=== PATIENT | female | born 1935 | race Caucasian/White ===

== ENCOUNTER 2018-02-02 10:49 | Observation (INO) | payer MEDICARE ==
[2018-02-02 11:25] LABS: BASO % 0.6 % (0.0-1.0); EOS # 0.2 10^3/uL (0.0-0.50); EOS % 3.7 % (0.0-3.0); HEMOGLOBIN 12.6 g/dl (12.0-15.5); IMMATURE GRANULOCYTE % 0.4 % (0-3.0); LYMPH # 1.1 10^3/uL (1.5-4.5); MEAN CORPUSCULAR HEMOGLOBIN 30.9 pg (27.0-33.0); MEAN CORPUSCULAR HGB CONC 32.3 g/dl (32.0-36.5); MEAN CORPUSCULAR VOLUME 95.6 fl (80.0-96.0); MONO # 0.6 10^3/uL (0.0-0.8); MONO % 11.8 % (0.0-5.0); NEUTROPHILS # 3.1 10^3/uL (1.8-7.7); NEUTROPHILS % 61.5 % (36.0-66.0); PLATELET COUNT, AUTOMATED 262 10^3/uL (150-450); RED BLOOD COUNT 4.08 10^6/uL (4.00-5.40); RED CELL DISTRIBUTION WIDTH 13.2 % (11.5-14.5); WHITE BLOOD COUNT 5.1 10^3/uL (4.0-10.0)
[2018-02-02 12:19] LABS: ALKALINE PHOSPHATASE 67 U/L (45-117); ALT/SGPT 26 U/L (12-78); ANION GAP 8 MEQ/L (8-16); AST/SGOT 19 U/L (7-37); BILIRUBIN,TOTAL 0.4 MG/DL (0.2-1.0); BLOOD UREA NITROGEN 26 MG/DL (7-18); CALCIUM LEVEL 9.2 MG/DL (8.8-10.2); CARBON DIOXIDE LEVEL 24 MEQ/L (21-32); CHLORIDE LEVEL 106 MEQ/L (98-107); CPK CREATINE PHOSPHOKINASE 78 U/L (26-192); CREATININE FOR GFR 1.43 MG/DL (0.55-1.30); GLOMERULAR FILTRATION RATE 37.6 (>32); GLUCOSE, FASTING 110 MG/DL (70-100); MB/CK RELATIVE INDEX 1.92 (< OR =4); SODIUM LEVEL 138 MEQ/L (136-145); TROPONIN I 0.04 NG/ML (< 0.10)
[2018-02-02 12:20] LABS: ALBUMIN 3.9 GM/DL (3.2-5.2); ALBUMIN/GLOBULIN RATIO 1.18 (1.00-1.93); BILIRUBIN,DIRECT < 0.1 MG/DL (0.0-0.2); LIPASE 245 U/L (73-393); TOTAL PROTEIN 7.2 GM/DL (6.4-8.2)
[2018-02-02 18:19] LABS: CPK CREATINE PHOSPHOKINASE 74 U/L (26-192); MB/CK RELATIVE INDEX 2.03 (< OR =4); TROPONIN I 0.08 NG/ML (< 0.10)
[2018-02-02] MEDS ORDERED: BISACODYL 5 MG TAB PO ×2 (20:15)
[2018-02-02] MEDS ORDERED: ONDANSETRON 4MG/2ML VIAL (J2405) IV ×2 (20:15)
[2018-02-02] MEDS: ACETAMINOPHEN TAB 650MG DOSE (2X325MG) PO ×2 (21:30)
[2018-02-02 23:33] LABS: CPK CREATINE PHOSPHOKINASE 63 U/L (26-192); MB/CK RELATIVE INDEX 1.75 (< OR =4); TROPONIN I 0.08 NG/ML (< 0.10)
[2018-02-03] MEDS: ACETAMINOPHEN TAB 650MG DOSE (2X325MG) PO ×2 (01:39)
[2018-02-03] MEDS: PANTOPRAZOLE 40MG INJ (PROTONIX) (C9113) IV ×2 (06:03)
[2018-02-03] MEDS: HEPARIN SOD (PORCINE) 5000 UNITS/ML VIAL SC ×4 (06:03→14:00)
[2018-02-03] MEDS: LEVOTHYROXINE 75MCG TABLET (0.075MG) PO ×2 (06:03)
[2018-02-03 07:50] LABS: HEMATOCRIT 35.4 % (36.0-47.0); HEMOGLOBIN 11.5 g/dl (12.0-15.5); MEAN CORPUSCULAR HEMOGLOBIN 30.2 pg (27.0-33.0); MEAN CORPUSCULAR HGB CONC 32.5 g/dl (32.0-36.5); MEAN CORPUSCULAR VOLUME 92.9 fl (80.0-96.0); PLATELET COUNT, AUTOMATED 244 10^3/uL (150-450); RED BLOOD COUNT 3.81 10^6/uL (4.00-5.40); RED CELL DISTRIBUTION WIDTH 13.2 % (11.5-14.5); WHITE BLOOD COUNT 5.5 10^3/uL (4.0-10.0)
[2018-02-03 08:02] LABS: ANION GAP 7 MEQ/L (8-16); BLOOD UREA NITROGEN 25 MG/DL (7-18); CALCIUM LEVEL 8.8 MG/DL (8.8-10.2); CARBON DIOXIDE LEVEL 26 MEQ/L (21-32); CHLORIDE LEVEL 107 MEQ/L (98-107); CPK CREATINE PHOSPHOKINASE 67 U/L (26-192); GLOMERULAR FILTRATION RATE 38.5 (>32); GLUCOSE, FASTING 92 MG/DL (70-100); MB/CK RELATIVE INDEX 1.79 (< OR =4); POTASSIUM SERUM 4.1 MEQ/L (3.5-5.1); SODIUM LEVEL 140 MEQ/L (136-145); TROPONIN I 0.08 NG/ML (< 0.10)
[2018-02-03] MEDS ORDERED: OLMESARTAN MEDOXOMIL 20 MG TAB (BENICAR) PO ×2 (09:00)
[2018-02-03] MEDS: **hydrALAZINE** 10 MG TAB PO ×2 (10:00)
[2018-02-03] MEDS: ASPIRIN 81 MG ENTERIC TAB PO ×2 (10:00)
[2018-02-03] MEDS: MULTIVITAMINS/MINERALS THERAP 1 TAB PO ×2 (10:00)
[2018-02-03] MEDS ORDERED: E-Z-GAS II EFFERVESCENT PACKET (SODIUM BICARB./CITRIC ACID/SIMETHICONE) As Ordered ×2 (11:42)
[2018-02-03] MEDS ORDERED: E-Z-HD 98% w/w 340GM SUSP BTL As Ordered ×2 (11:42)
[2018-02-03] MEDS ORDERED: E-Z-PAQUE 96% w/w SUSP 176GM BTL As Ordered ×2 (11:42)
== END 2018-02-03 07:16 | disposition home or self-care (01) ==
LOC: M ED 10:49 → M ED INP 20:09
DX: R07.89 Other chest pain (principal); I10 Essential (primary) hypertension; E05.90 Thyrotoxicosis, unspecified without thyrotoxic crisis or storm; K21.9 Gastro-esophageal reflux disease without esophagitis; Z79.899 Other long term (current) drug therapy; Z79.82 Long term (current) use of aspirin; N18.9 Chronic kidney disease, unspecified
CPT/HCPCS: C9113

== ENCOUNTER 2018-02-12 06:40 | Emergency (ER) | payer MEDICARE ==
[2018-02-12 07:12] LABS: BASO % 0.5 % (0.0-1.0); EOS # 0.2 10^3/uL (0.0-0.50); EOS % 3.2 % (0.0-3.0); HEMATOCRIT 38.7 % (36.0-47.0); HEMOGLOBIN 12.5 g/dl (12.0-15.5); IMMATURE GRANULOCYTE % 0.2 % (0-3.0); LYMPH # 1.2 10^3/uL (1.5-4.5); LYMPH % 18.9 % (24.0-44.0); MEAN CORPUSCULAR HEMOGLOBIN 30.9 pg (27.0-33.0); MEAN CORPUSCULAR HGB CONC 32.3 g/dl (32.0-36.5); MEAN CORPUSCULAR VOLUME 95.6 fl (80.0-96.0); MONO # 0.6 10^3/uL (0.0-0.8); NEUTROPHILS # 4.3 10^3/uL (1.8-7.7); NEUTROPHILS % 68.2 % (36.0-66.0); PLATELET COUNT, AUTOMATED 259 10^3/uL (150-450); RED BLOOD COUNT 4.05 10^6/uL (4.00-5.40); RED CELL DISTRIBUTION WIDTH 13.2 % (11.5-14.5); WHITE BLOOD COUNT 6.3 10^3/uL (4.0-10.0)
[2018-02-12 07:41] LABS: ANION GAP 8 MEQ/L (8-16); BLOOD UREA NITROGEN 25 MG/DL (7-18); CALCIUM LEVEL 9.4 MG/DL (8.8-10.2); CARBON DIOXIDE LEVEL 26 MEQ/L (21-32); CHLORIDE LEVEL 105 MEQ/L (98-107); CPK CREATINE PHOSPHOKINASE 117 U/L (26-192); CREATININE FOR GFR 1.54 MG/DL (0.55-1.30); GLOMERULAR FILTRATION RATE 34.5 (>32); GLUCOSE, FASTING 102 MG/DL (70-100); MB/CK RELATIVE INDEX 3.93 (< OR =4); POTASSIUM SERUM 4.6 MEQ/L (3.5-5.1); SODIUM LEVEL 139 MEQ/L (136-145); TROPONIN I 2.53 NG/ML (< 0.10)
[2018-02-12] MEDS ORDERED: ASPIRIN 81 MG CHEW TABLET PO (07:45)
[2018-02-12] MEDS: NITROGLYCERIN 0.4 MG SUBL TABLET SL ×2 (08:03→08:10)
[2018-02-12 08:09] LABS: INR 0.96; PROTHROMBIN TIME 12.9 SECONDS (12.1-14.4)
[2018-02-12 08:10] LABS: PARTIAL THROMBOPLASTIN TIME 23.2 SECONDS (25.4-37.6)
[2018-02-12] MEDS: CLOPIDOGREL 300 MG TAB (PLAVIX) PO (08:15)
[2018-02-12] MEDS: HEPARIN DRIP 25,000 UNITS in APPROPRIATE DILUENT 1 EA IV (08:15)
[2018-02-12] MEDS: HEPARIN SOD (PORCINE) 5000 UNITS/ML VIAL IV (08:15)
== END 2018-02-12 09:13 | disposition short-term general hospital (02) ==
LOC: M ED 06:40
DX: I21.4 Non-ST elevation (NSTEMI) myocardial infarction (principal); I10 Essential (primary) hypertension; E78.5 Hyperlipidemia, unspecified; K21.9 Gastro-esophageal reflux disease without esophagitis; Z88.8 Allergy status to other drugs, medicaments and biological substances; Z79.899 Other long term (current) drug therapy; Z79.82 Long term (current) use of aspirin
CPT/HCPCS: 71045

== ENCOUNTER → 2018-06-09 | Outpatient (REF) | payer MEDICARE ==
[~2018-06-09] MED LIST: ASPI81TA85 PO; BACI1CAP PO; BENI40TA26 PO; ERYTOIN8 OP; LEVO75TA4 PO; PEPC1TAB5 PO; POLY2.5S OP; PRIL20TA2 PO; REFR0.5D8 OU; VITMTA PO
[2018-06-09 19:02] LABS: PERCENT SATURATION 22.8 % (13.2-45.0)
== END ==
LOC: M LAB REF 17:17
PROVIDERS: ATTEND Internal Medicine Nephrology
DX: N18.4 Chronic kidney disease, stage 4 (severe) (principal); D50.9 Iron deficiency anemia, unspecified

== ENCOUNTER 2018-06-12 15:11 | Emergency (ER) | payer MEDICARE ==
[~2018-06-12] VITALS: Ht 144.8 cm; Wt 61.4 kg
[~2018-06-12 15:11] MED LIST changes: -ERYTOIN8 OP; -POLY2.5S OP
[2018-06-12] MEDS ORDERED: POLY2.5S OP (15:18)
[2018-06-12] MEDS ORDERED: PROPARACAINE 0.5% OPHTH SOL 15ML OU ONE (16:00)
[2018-06-12] MEDS ORDERED: FLUORESCEIN OPHTH 1 MG STRIP OU ONE (16:00)
[2018-06-12] MEDS ORDERED: ERYTHROMYCIN OPHTH OINT OU ONE (16:30)
[2018-06-12] MEDS ORDERED: ERYTOIN8 OP (16:34)
[2018-06-12 16:45] VITALS: BP 150/90
== END 2018-06-12 16:53 | disposition home or self-care (01) ==
LOC: M ED 15:11
DX: H16.003 Unspecified corneal ulcer, bilateral (principal); I10 Essential (primary) hypertension; I25.2 Old myocardial infarction; E03.9 Hypothyroidism, unspecified; K21.9 Gastro-esophageal reflux disease without esophagitis; Z79.899 Other long term (current) drug therapy; Z79.890 Hormone replacement therapy; Z79.82 Long term (current) use of aspirin; Z79.01 Long term (current) use of anticoagulants; Z88.1 Allergy status to other antibiotic agents; Z88.2 Allergy status to sulfonamides

== ENCOUNTER → 2018-07-02 | Outpatient (REF) | payer MEDICARE ==
[~2018-07-02] MED LIST changes: +ERYTOIN8 OP; +POLY2.5S OP
== END ==
LOC: M SFHCLERA 10:21
PROVIDERS: ATTEND Physician Assistant
DX: N39.0 Urinary tract infection, site not specified (principal)

== ENCOUNTER 2018-08-05 20:50 | Observation (INO) | payer MEDICARE ==
[~2018-08-05] VITALS: Ht 142.2 cm; Wt 60.9 kg
[2018-08-05] MEDS ORDERED: METO1TAB87 PO (21:13)
[2018-08-05] MEDS ORDERED: CLOP75TA2 PO (21:13)
[2018-08-05] MEDS ORDERED: BENI40TA26 PO (21:15)
[2018-08-05] MEDS ORDERED: OYST1TAB PO (21:15)
[2018-08-05 22:15] LABS: ALBUMIN 3.8 GM/DL (3.2-5.2); ALT/SGPT 41 U/L (12-78); BILIRUBIN,DIRECT < 0.1 MG/DL (0.0-0.2); BILIRUBIN,TOTAL 0.3 MG/DL (0.2-1.0); BLOOD UREA NITROGEN 39 MG/DL (7-18); CALCIUM LEVEL 9.2 MG/DL (8.8-10.2); CARBON DIOXIDE LEVEL 28 MEQ/L (21-32); CHLORIDE LEVEL 106 MEQ/L (98-107); CPK CREATINE PHOSPHOKINASE 81 U/L (26-192); CREATININE FOR GFR 2.22 MG/DL (0.55-1.30); GLOMERULAR FILTRATION RATE 22.6 (>32); GLUCOSE, FASTING 106 MG/DL (70-100); MB/CK RELATIVE INDEX 1.73 (< OR =4); POTASSIUM SERUM 4.5 MEQ/L (3.5-5.1); SODIUM LEVEL 138 MEQ/L (136-145); TOTAL PROTEIN 7.5 GM/DL (6.4-8.2); TROPONIN I < 0.02 NG/ML (< 0.10)
[2018-08-05 22:45] LABS: HEMATOCRIT 35.3 % (36.0-47.0); HEMOGLOBIN 11.2 g/dl (12.0-15.5); MEAN CORPUSCULAR HEMOGLOBIN 30.5 pg (27.0-33.0); MEAN CORPUSCULAR HGB CONC 31.7 g/dl (32.0-36.5); MEAN CORPUSCULAR VOLUME 96.2 fl (80.0-96.0); PLATELET COUNT, AUTOMATED 246 10^3/uL (150-450); RED BLOOD COUNT 3.67 10^6/uL (4.00-5.40); WHITE BLOOD COUNT 6.4 10^3/uL (4.0-10.0)
[2018-08-05] MEDS ORDERED: HEAL1TAB PO (23:44)
[2018-08-05] MEDS ORDERED: TUMS500C PO (23:44)
[2018-08-05] MEDS ORDERED: PREP1CRE EXT (23:44)
[2018-08-05] MEDS ORDERED: FAMO1TAB25 PO (23:44)
[2018-08-05] MEDS ORDERED: CVS500CA5 PO (23:44)
[2018-08-05] MEDS ORDERED: VITA100T14 PO (23:44)
[2018-08-05] MEDS ORDERED: ASPI81TA26 PO (23:44)
[2018-08-05] MEDS ORDERED: CO Q200C10 PO (23:44)
[2018-08-05] MEDS ORDERED: OCUVTAB PO (23:44)
[2018-08-05] MEDS ORDERED: ARTI99.0 OU (23:44)
[2018-08-05] MEDS ORDERED: NITR4TASL SL (23:44)
[2018-08-05] MEDS ORDERED: CALC1TAB63 PO (23:44)
[2018-08-05] MEDS ORDERED: C 50TAB PO (23:44)
[2018-08-05] MEDS ORDERED: VITMTA PO (23:44)
[2018-08-05] MEDS ORDERED: FERG27TA PO (23:44)
[2018-08-05] MEDS ORDERED: VITS42.53 EXT (23:44)
[2018-08-05] MEDS ORDERED: ACET-897 PO (23:44)
[2018-08-05] MEDS ORDERED: LIVA1TAB PO (23:44)
[2018-08-06] MEDS ORDERED: MAALOX 30 ML SUSP *UDC PO PRN (00:15)
[2018-08-06] MEDS ORDERED: MOM 30ML SUSPENSION UDC PO PRN (00:15)
[2018-08-06] MEDS ORDERED: NITROGLYCERIN 0.4 MG SUBL TABLET SL PRN (00:15)
[2018-08-06] MEDS ORDERED: ACETAMINOPHEN TAB 650MG DOSE (2X325MG) PO PRN (00:15)
[2018-08-06] MEDS ORDERED: LR 1,000 ML IV SCH (00:15)
[2018-08-06] MEDS ORDERED: CALCIUM CARBONATE 500 MG CHEW U/D PO PRN (00:15)
--- NOTE | 2018-08-06 01:25 | HPEPDOC ---
General Date of Admission August 05, 2018 at 23:15 Chief Complaint The patient is a 82-year-old female admitted with a reason for visit of Renal In [facility]. Source: Patient History of Present Illness Ms Fofana is an 82 years old woman with hx/o HTN. She felt warm and flushed today at home and checked her BP which was very high. She then decided to come to ER. Pt could not tell me the home reading of BP. She took her evening dose of Lopressor before coming to ER. She reports being complaint with BP meds. She takes Benicar and Lopressor at home. On arrival to ER, pt's BP was only moderately elevated. Her symptoms resolved. Labs was significant for moderately elevated BUN (39) and Cr (2.2 vs 1.5), s lightly off from her baseline. Pt denies nausea, vomiting, diarrhea or urinary symptoms. She says she was recently treated for UTI with antibiotic. Home Medications Scheduled Ascorbic Acid (Vitamin C) 500 Mg Tablet, 500 MG PO QPM, (Reported) Aspirin (Aspirin EC) 81 Mg Tablet.dr, 81 MG PO DAILY, (Reported) B6/FA/B12/Co Q10/Herb No.225 (Healthy Heart Complex Tablet) 1 Each Tablet, 1 TAB PO DAILY, (Reported) Calcium Carbonate/Vitamin D3 (Calcium 600-Vit D3 400 Tablet) 1 Each Tablet, 1 TAB PO BID, (Reported) Clopidogrel Bisulfate (Clopidogrel) 75 Mg Tablet, 75 MG PO DAILY, (Reported) Cranberry Fruit Extract (Cranberry) 500 Mg Capsule, 500 MG PO DAILY, (Reported) Famotidine (Pepcid) 20 Mg Tab, 20 MG PO DAILY, (Reported) Ferrous Gluconate (Fergon) 270 Mg Tablet, 0.25 TAB PO BID, (Reported) Levothyroxine Sodium (Levothyroxine Sodium) 75 Mcg Tab, 75 MCG PO DAILY, (Reported) Metoprolol Tartrate (Metoprolol Tartrate) 25 Mg Tablet, 12.5 MG PO BID, (Repor matt) Multivitamins (Thera M Plus Tablet) 1 Each Tablet, 1 TAB PO DAILY, (Reported) Olmesartan Medoxomil (Benicar) 40 Mg Tablet, 40 MG PO DAILY, (Reported) Pitavastatin Calcium (Livalo) 1 Mg Tablet, 1 MG PO QHS, (Reported) Polyvinyl Alcohol (Artificial Tears) 15 Ml Drops, 1 DROP OU BID, (Reported) Pyridoxine HCl (Vitamin B6) (Vitamin B-6) 100 Mg Tablet, 100 MG PO DAILY, (Reported) Ubidecarenone (Co Q-10) 200 Mg Capsule, 200 MG PO DAILY, (Reported) Vits A,C,E/Lutein/Minerals (Ocuvite with Lutein Tablet) 1 Each Tablet, 1 TAB PO QPM, (Reported) Scheduled PRN Acetaminophen (Tylenol Extra Strength) 500 Mg Tablet, 1,000 MG PO Q6H PRN for PAIN, (Reported) Calcium Carbonate (Tums) 200 Mg Tab.chew, 500 MG PO Q4H PRN for HEARTBURN/INDIGESTION, (Reported) Famotidine (Famotidine) 10 Mg Tablet, 10 MG PO QPM PRN for HEARTBURN, (Reported) Hydrocortisone (Preparation H) 26 Gm Cream..g., 1 DOSE EXT QID PRN for HEMORRHOIDS, (Reported) Nitroglycerin (Nitrostat) 0.4 Mg Tab.subl, 0.4 MG SL NITRO PRN for CHEST PAIN, (Reported) Vits A and D/White Pet/Lanolin (A and D Ointment) 42.5 Gm Oint...g., 1 OIN EXT QID PRN for DRY SKIN, (Reported) USES ON PERINEUM Allergies Coded Allergies: Sulfa (Sulfonamide Antibiotics) (Verified Allergy, Intermediate, HIVES, 08/05/18) Past Medical History Medical History HTN, Hyperthyroidism, CKD III, GERD Surgical History History of appendicitis resulting intestinal surgical removal, colostomy, reversal of colostomy. Hysterectomy, hernia repair. Family History Significant Family History: No pertinent family hx Social History * Smoker: Denies Alcohol: Denies Drugs: denies A-FIB/CHADSVASC A-FIB History Current/History of A-Fib/PAF?: No Review of Systems Constitutional: Denies: Chills, Fever, Malaise, Weakness, Lethargy Eyes: Denies: Pain ENT: Denies: Head Aches Skin: Denies: Rash Pulmonary: Denies: Dyspnea, Pleuritic Chest Pain Cardiovascular: Denies: Chest Pain, Palpitations Gastrointestinal: Denies: Nausea, Vomiting, Abdominal Pain, Diarrhea, Constipation Genitourinary: Denies: Dysuria, Frequency, Incontinence Musculoskeletal: Denies: Muscle Pain Neurological: Denies: Weakness, Confusion Psych: Reports: Mood Normal Physical Examination General Exam: Positive: Alert, Cooperative, No Acute Distress ENT Exam: Positive: Atraumatic, Other ENT (dry tongue) Neck Exam: Positive: Supple; Negative: JVD Chest Exam: Positive: Clear to auscultation, Normal air movement Heart Exam: Positive: Rate Normal, Regular Rhythm Abdomen Exam: Positive: Normal bowel sounds, Soft; Negative: Tenderness Extremity Exam: Negative: Edema Skin Exam: Negative: Rash Neuro Exam: Positive: Normal Speech, Strength at 5/5 X4 ext Psych Exam: Positive: Mental status NL, Mood NL Vital Signs Vital Signs Date Time Temp Pulse Resp B/P (MAP) Pulse Ox O2 Delivery O2 Flow Rate FiO2 08/05/18 20:57 08/05/18 20:51 97.1 89 18 97 Room Air Laboratory Data Labs 24H Laboratory Tests 2 08/05/18 21:28: Nucleated Red Blood Cells % (auto) 0.0 08/05/18 21:36: Anion Gap 4L, Glomerular Filtration Rate 22.6L, Calcium Level 9.2, Aspartate Amino Transf (AST/SGOT) 26, Alanine Aminotransferase (ALT/SGPT) 41, Alkaline Phosphatase 54, Total Bilirubin 0.3, Direct Bilirubin < 0.1, Total Creatine Kinase 81, Creatine Kinase MB 1.0, Creatine Kinase MB Relative Index 1.73, Troponin I < 0.02, Total Protein 7.5, Albumin 3.8, Albumin/Globulin Ratio 1.03 08/05/18 22:47: Urine Color STRAW, Urine Appearance CLEAR, Urine pH 5.0, Urine Specific [place] 1.006, Urine Protein NEGATIVE, Urine Glucose (UA) NEGATIVE, Urine Ketones NEGATIVE, Urine Blood NEGATIVE, Urine Nitrite NEGATIVE, Urine Bilirubin NEGATIVE, Urine Urobilinogen 0.2, Urine Leukocyte Esterase TRACEH, Urine WBC (Auto) 1, Urine RBC (Auto) 3, Urine Hyaline Casts (Auto) 0, Urine Bacteria (Auto) NEGATIVE, Urine Squamous Epithelial Cells 0, Urine Mucus (Auto) SMALL, Urine Sperm (Auto) CBC/BMP Laboratory Tests 08/05/18 21:28 Red Blood Count 3.67 L, Mean Corpuscular Volume 96.2 H, Mean Corpuscular Hemoglobin 30.5, Mean Corpuscular Hemoglobin Concent 31.7 L, Red Cell Distribution Width 12.7 08/05/18 21:36 Microbiology Microbiology 08/05/18 Urine Culture, Received Pending Assessment/Plan 82 years old woman presenting with moderately elevated BP and slight worsening of CKD. She appears dry. Renal Injury- dehydration - Keep in Obs - IV fluid - repeat BMP in the morning Uncontrolled HTN - Continue home meds for now - monitor bP and adjust meds as needed Plan / VTE VTE Prophylaxis Ordered?: No VTE Exclusion Pharmacological: At Low Risk for VTE Plan Anticipated Discharge: Home REY MONTANO MD August 06, 2018 01:25
[2018-08-06 02:45] VITALS: BP 164/78
[2018-08-06 06:00] VITALS: BP 164/70
[2018-08-06] MEDS: LEVOTHYROXINE 75MCG TABLET (0.075MG) PO SCH (06:09)
[2018-08-06 07:21] LABS: CALCIUM LEVEL 8.9 MG/DL (8.8-10.2); CREATININE FOR GFR 2.05 MG/DL (0.55-1.30); GLOMERULAR FILTRATION RATE 24.8 (>32); POTASSIUM SERUM 4.1 MEQ/L (3.5-5.1)
[2018-08-06] MEDS: CLOPIDOGREL 75 MG TAB PO SCH (08:29)
[2018-08-06] MEDS: METOPROLOL TART 12.5 MG PER 1/2 TAB PO SCH ×2 (08:29→21:01)
[2018-08-06] MEDS: ASPIRIN 81 MG ENTERIC TAB PO SCH (08:29)
[2018-08-06] MEDS: FAMOTIDINE 20 MG TAB PO SCH (08:29)
[2018-08-06] MEDS: POLYVINYL ALCOHOL OPHTH SOLN 15 ML(LIQUITEARS) OU SCH ×2 (08:29→21:01)
[2018-08-06] MEDS: **hydrALAZINE HCL** 25 MG TAB PO SCH ×3 (08:58→21:02)
[2018-08-06] MEDS ORDERED: OLMESARTAN MEDOXOMIL 20 MG TAB (BENICAR) PO SCH (09:00)
--- NOTE | 2018-08-06 09:26 | ECGEPIP ---
Stationary ECG Study [facility] - ED Test Date: 2018-08-05 Pat Name: JAGRUTI CORONADO Department: Room: [place] [address] Gender: F [employer]er: ct : 1935 Requested By: MELBA CERNA Order Number: [id number] Reading MD: Lurdes Randolph Measurements Intervals [place] Rate: 69 P: 58 WA: 166 QRS: 47 QRSD: 96 T: 51 QT: 382 QTc: 410 Interpretive Statements SINUS RHYTHM INCOMPLETE RIGHT BUNDLE BRANCH BLOCK NONSPECIFIC ST T WAVE CHANGES CW 02/12/[address] T WAVE CHANGES Electronically Signed On 08-06-2018 9:25:34 EDT by Lurdes Randolph
--- NOTE | 2018-08-06 13:25 | IPNPDOC ---
Subjective Date Seen The patient was seen on 08/06/18. Subjective Chief Complaint/HPI Patient seen and examined at the bedside. Reports that she feels better today and has not had any episodes of generalized weakness or flushing. Objective Physical Examination General Exam: Positive: Alert, Cooperative, No Acute Distress ENT Exam: Positive: Atraumatic, Mucous membr. moist/pink Neck Exam: Negative: JVD Chest Exam: Positive: Clear to auscultation, Normal air movement Heart Exam: Positive: Rate Normal, Regular Rhythm Abdomen Exam: Positive: Normal bowel sounds, Soft; Negative: Tenderness Extremity Exam: Negative: Tenderness, Swelling Neuro Exam: Positive: Normal Speech Psych Exam: Positive: Mental status NL, Mood NL, Oriented x 3 A-FIB/CHADSVASC A-FIB History Current/History of A-Fib/PAF?: No Assessment /Plan Plan/VTE VTE Prophylaxis Ordered?: Yes Plan Acute Kidney Injury Superimposed on CKD Stage III Likely 2/2 Dehydration, in the setting of ARB use Hold Nephrotoxins Gentle IVF Hydration ordered Renal U/S ordered Serum Cr slightly improved since admission; 2.05 (Baseline ~1.5) We will cont to monitor Hypertension, stable Benicar has been held due to above Continue metoprolol, hydralazine added History of coronary artery disease Continue aspirin, Plavix, metoprolol History of hypothyroidism Continue Synthroid GERD Continue Pepcid DVT Prophylaxis SCDs/TEDs Disposition-anticipate discharge home in 24-48 hours pending continued clinical improvement. VS, I&O, 24H, Rak[place] Vital Signs/I&O Vital Signs Date Time Temp Pulse Resp B/P (MAP) Pulse Ox O2 Delivery O2 Flow Rate FiO2 08/06/18 08:58 180/90 08/06/18 08:29 74 08/06/18 06:00 97.4 17 97 08/06/18 02:37 Room Air I&O- Last 24 Hours up to 6 AM 08/06/18 06:00 Intake Total 270 ml Output Total 300 ml Balance -30 ml Laboratory Data 24H LABS Laboratory Tests 2 08/05/18 21:28: Nucleated Red Blood Cells % (auto) 0.0 08/05/18 21:36: Anion Gap 4L, Glomerular Filtration Rate 22.6L, Calcium Level 9.2, Aspartate Amino Transf (AST/SGOT) 26, Alanine Aminotransferase (ALT/SGPT) 41, Alkaline Phosphatase 54, Total Bilirubin 0.3, Direct Bilirubin < 0.1, Total Creatine Kinase 81, Creatine Kinase MB 1.0, Creatine Kinase MB Relative Index 1.73, Troponin I < 0.02, Total Protein 7.5, Albumin 3.8, Albumin/Globulin Ratio 1.03 08/05/18 22:47: Urine Color STRAW, Urine Appearance CLEAR, Urine pH 5.0, Urine Specific [place] 1.006, Urine Protein NEGATIVE, Urine Glucose (UA) NEGATIVE, Urine Ketones NEGATIVE, Urine Blood NEGATIVE, Urine Nitrite NEGATIVE, Urine Bilirubin NEGATIVE, Urine Urobilinogen 0.2, Urine Leukocyte Esterase TRACEH, Urine WBC (Auto) 1, Urine RBC (Auto) 3, Urine Hyaline Casts (Auto) 0, Urine Bacteria (Auto) NEGATIVE, Urine Squamous Epithelial Cells 0, Urine Mucus (Auto) SMALL, Urine Sperm (Auto) 08/06/18 06:50: Anion Gap 4L, Glomerular Filtration Rate 24.8L, Calcium Level 8.9, Blood Urea Nitrogen 35H, Creatinine 2.05H, Sodium Level 141, Potassium Level 4.1, Chloride Level 110H, Carbon Dioxide Level 27 CBC/BMP Laboratory Tests 08/05/18 21:28 Red Blood Count 3.67 L, Mean Corpuscular Volume 96.2 H, Mean Corpuscular Hemoglobin 30.5, Mean Corpuscular Hemoglobin Concent 31.7 L, Red Cell Distribution Width 12.7 08/05/18 21:36 08/06/18 06:50 Calcium Level 8.9 Microbiology Microbiology 08/05/18 Urine Culture, Received Pending SHAUN AMES MD August 06, 2018 13:25
[2018-08-06 14:00] VITALS: BP 158/78
--- NOTE | 2018-08-06 16:46 | REP ---
HISTORY: Renal failure. COMPARISON: None. Right kidney measures 8.6 x 4.3 x 3.3 cm, left measures 8.4 x 4.1 x 3.6 cm. The renal cortical echoes are within normal limits. Cortical medullary differentiation is preserved. There is no hydronephrosis. There are no cystic or solid masses on either side. There is slight bilateral renal cortical thinning. IMPRESSION: Age-related atrophic change, otherwise unremarkable exam as described above. Electronically Signed by Pj Keith DO 08/06/2018 05:13 P
[2018-08-06] MEDS ORDERED: OCUVITE 1 TAB PO SCH (21:00)
[2018-08-06 21:07] VITALS: BP 158/90
[2018-08-07 05:43] VITALS: BP 142/82
[2018-08-07] MEDS: **hydrALAZINE HCL** 25 MG TAB PO SCH (05:44)
[2018-08-07] MEDS: LEVOTHYROXINE 75MCG TABLET (0.075MG) PO SCH (05:45)
[2018-08-07 07:46] LABS: CALCIUM LEVEL 8.5 MG/DL (8.8-10.2); CREATININE FOR GFR 1.96 MG/DL (0.55-1.30); GLOMERULAR FILTRATION RATE 26.1 (>32); POTASSIUM SERUM 4.6 MEQ/L (3.5-5.1)
[2018-08-07] MEDS ORDERED: LR 1,000 ML IV SCH (08:45)
[2018-08-07 09:07] VITALS: BP 142/82
[2018-08-07] MEDS: METOPROLOL TART 12.5 MG PER 1/2 TAB PO SCH (09:07)
[2018-08-07] MEDS: ASPIRIN 81 MG ENTERIC TAB PO SCH (09:07)
[2018-08-07] MEDS: CLOPIDOGREL 75 MG TAB PO SCH (09:07)
[2018-08-07] MEDS: POLYVINYL ALCOHOL OPHTH SOLN 15 ML(LIQUITEARS) OU SCH (09:07)
[2018-08-07] MEDS: FAMOTIDINE 20 MG TAB PO SCH (09:07)
[2018-08-07] MEDS ORDERED: NORV5TAB PO (11:09)
--- NOTE | 2018-08-07 12:41 | DS.PDOC ---
Discharge Summary General Date of Admission August 05, 2018 at 23:15 Date of Discharge 08/07/18 Discharge Summary PROCEDURES PERFORMED DURING STAY: None. ADMITTING/DISCHARGE DIAGNOSES: Elevated serum creatinine in a patient with a history of chronic kidney disease stage III Dehydration/lightheadedness Hypertension History of coronary disease History of hypothyroidism COMPLICATIONS/CHIEF COMPLAINT: Renal Injury. HISTORY OF PRESENT ILLNESS: . 82-year-old female with past medical history of hypertension, dyslipidemia, hypothyroidism, CAD, and chronic kidney disease presented to the ER with chief complaint of feeling generalized weakness with associated dizziness. In the ER, the patient was noted to be hypertensive, and her serum creatinine level was noted to be above her baseline from February 2018. She was admitted to the hospitalist service for the diagnosis of dehydration and possible acute kidney injury superimposed on chronic kidney disease. HOSPITAL COURSE: . Acute Kidney Injury Superimposed on CKD Stage III Likely 2/2 Dehydration, in the setting of ARB use Nephrotoxins held s/p Gentle IVF Hydration Renal U/S ordered with no acute findings Serum Cr improved since admission; 2.22-->1.96 (Baseline ~1.5 from February 2018) It appears that the patient's serum creatinine has been uptrending on most recent lab work done at her PCPs office about 2 months ago. She does follow with Dr. Rahel Hernandez of nephrology locally, and they have been monitoring her renal function. I did discuss the case with Dr. Schneider, and he has agreed that we will keep the patient off of Benicar (will switch to Norvasc) upon discharge, and have the patient follow-up as an outpatient for further monitoring of her renal function. Hypertension, stable Benicar has been discontinued do to above Continue metoprolol, Norvasc added History of coronary artery disease Continue aspirin, Plavix, metoprolol History of hypothyroidism Continue Synthroid GERD Continue Pepcid DISCHARGE MEDICATIONS: Please see below. ALLERGIES: Please see below. PHYSICAL EXAMINATION ON DISCHARGE: VITAL SIGNS: Please see below. General Exam: Positive: Alert, Cooperative, No Acute Distress ENT Exam: Positive: Atraumatic, Mucous membr. moist/pink Neck Exam: Negative: JVD Chest Exam: Positive: Clear to auscultation, Normal air movement Heart Exam: Positive: Rate Normal, Regular Rhythm Abdomen Exam: Positive: Normal bowel sounds, Soft; Negative: Tenderness Extremity Exam: Negative: Tenderness, Swelling Neuro Exam: Positive: Normal Speech Psych Exam: Positive: Mental status NL, Mood NL, Oriented x 3 LABORATORY DATA: Please see below. IMAGING: HISTORY: Renal failure. COMPARISON: None. Right kidney measures 8.6 x 4.3 x 3.3 cm, left measures 8.4 x 4.1 x 3.6 cm. The renal cortical echoes are within normal limits. Cortical medullary differentiation is preserved. There is no hydronephrosis. There are no cystic or solid masses on either side. There is slight bilateral renal cortical thinning. IMPRESSION: Age-related atrophic change, otherwise unremarkable exam as described above. PROGNOSIS: Fair ACTIVITY: As tolerated. DIET: 2 g low sodium diet DISCHARGE PLAN: DISPOSITION: . Home DISCHARGE INSTRUCTIONS: Follow-up with PCP within 7 days. Follow-up with nephrology within 2-4 weeks. DISCHARGE CONDITION: Stable. TIME SPENT ON DISCHARGE: Greater than 30 minutes. Vital Signs/I&Os Vital Signs Date Time Temp Pulse Resp B/P (MAP) Pulse Ox O2 Delivery O2 Flow Rate FiO2 08/07/18 09:07 91 142/82 08/07/18 05:43 97.9 18 98 08/06/18 02:37 Room Air I&O- Last 24 Hours up to 6 AM 08/07/18 05:59 Intake Total 1770 ml Output Total 2650 ml Balance -880 ml Laboratory Data Labs 24H Laboratory Tests 2 08/07/18 06:49: Anion Gap 6L, Glomerular Filtration Rate 26.1L, Blood Urea Nitrogen 31H, Creatinine 1.96H, Sodium Level 142, Potassium Level 4.6, Chloride Level 110H, Carbon Dioxide Level 26, Calcium Level 8.5L CBC/BMP Laboratory Tests 08/07/18 06:49 Calcium Level 8.5 L Microbiology Microbiology 08/05/18 Urine Culture, Received Pending Discharge Medications Scheduled Amlodipine Besylate (Norvasc) 5 Mg Tablet, 1 TAB PO DAILY Ascorbic Acid (Vitamin C) 500 Mg Tablet, 500 MG PO QPM, (Reported) Aspirin (Aspirin EC) 81 Mg Tablet.dr, 81 MG PO DAILY, (Reported) B6/FA/B12/Co Q10/Herb No.225 (Healthy Heart Complex Tablet) 1 Each Tablet, 1 TAB PO DAILY, (Reported) Calcium Carbonate/Vitamin D3 (Calcium 600-Vit D3 400 Tablet) 1 Each Tablet, 1 TAB PO BID, (Reported) Clopidogrel Bisulfate (Clopidogrel) 75 Mg Tablet, 75 MG PO DAILY, (Reported) Cranberry Fruit Extract (Cranberry) 500 Mg Capsule, 500 MG PO DAILY, (Reported) Famotidine (Pepcid) 20 Mg Tab, 20 MG PO DAILY, (Reported) Ferrous Gluconate (Fergon) 270 Mg Tablet, 0.25 TAB PO BID, (Reported) Levothyroxine Sodium (Levothyroxine Sodium) 75 Mcg Tab, 75 MCG PO DAILY, (Reported) Metoprolol Tartrate (Metoprolol Tartrate) 25 Mg Tablet, 12.5 MG PO BID, (Reported) Multivitamins (Thera M Plus Tablet) 1 Each Tablet, 1 TAB PO DAILY, (Reported) Pitavastatin Calcium (Livalo) 1 Mg Tablet, 1 MG PO QHS, (Reported) Polyvinyl Alcohol (Artificial Tears) 15 Ml Drops, 1 DROP OU BID, (Reported) Pyridoxine HCl (Vitamin B6) (Vitamin B-6) 100 Mg Tablet, 100 MG PO DAILY, (Reported) Ubidecarenone (Co Q-10) 200 Mg Capsule, 200 MG PO DAILY, (Reported) Vits A,C,E/Lutein/Minerals (Ocuvite with Lutein Tablet) 1 Each Tablet, 1 TAB PO QPM, (Reported) Scheduled PRN Acetaminophen (Tylenol Extra Strength) 500 Mg Tablet, 1,000 MG PO Q6H PRN for PAIN, (Reported) Calcium Carbonate (Tums) 200 Mg Tab.chew, 500 MG PO Q4H PRN for HEARTBURN/INDIGESTION, (Reported) Famotidine (Famotidine) 10 Mg Tablet, 10 MG PO QPM PRN for HEARTBURN, (Reported) Hydrocortisone (Preparation H) 26 Gm Cream..g., 1 DOSE EXT QID PRN for HEMORRHOIDS, (Reported) Nitroglycerin (Nitrostat) 0.4 Mg Tab.subl, 0.4 MG SL NITRO PRN for CHEST PAIN, (Reported) Vits A and D/White Pet/Lanolin (A and D Ointment) 42.5 Gm Oint...g., 1 OIN EXT QID PRN for DRY SKIN, (Reported) USES ON PERINEUM Allergies Coded Allergies: Sulfa (Sulfonamide Antibiotics) (Verified Allergy, Intermediate, HIVES, 08/05/18) SHAUN AMES MD August 07, 2018 12:41
== END 2018-08-07 13:50 | disposition home or self-care (01) ==
LOC: M ED 20:50 → M ED INP 23:15 → M MS4PR 08-06 02:40
PROVIDERS: ADMIT Internal Medicine; ATTEND Internal Medicine
DX: R79.89 Other specified abnormal findings of blood chemistry (principal); N18.3 Chronic kidney disease, stage 3 (moderate); E86.0 Dehydration; R42 Dizziness and giddiness; I12.9 Hypertensive chronic kidney disease with stage 1 through stage 4 chronic kidney disease, or unspecified chronic kidney disease; I25.10 Atherosclerotic heart disease of native coronary artery without angina pectoris; E03.9 Hypothyroidism, unspecified; K21.9 Gastro-esophageal reflux disease without esophagitis; Z79.899 Other long term (current) drug therapy; Z79.02 Long term (current) use of antithrombotics/antiplatelets; Z79.82 Long term (current) use of aspirin; Z88.2 Allergy status to sulfonamides
CPT/HCPCS: 36415; 76775; 80048; 80076; 81001; 82550; 82553; 84484; 85027; 87088; 87186; 93005; 96374; 96376; 99284; G0378

== ENCOUNTER → 2018-08-14 | Outpatient (CLI) | payer MEDICARE ==
[~2018-08-14] MED LIST changes: +ACET-897 PO; +ARTI99.0 OU; +ASPI81TA26 PO; +C 50TAB PO; +CALC1TAB63 PO; +CLOP75TA2 PO; +CO Q200C10 PO; +CVS500CA5 PO; +FAMO1TAB25 PO; +FERG27TA PO; +HEAL1TAB PO; +LIVA1TAB PO; +METO1TAB87 PO; +NITR4TASL SL; +NORV5TAB PO; +OCUVTAB PO; +OYST1TAB PO; +PREP1CRE EXT; +TUMS500C PO; +VITA100T14 PO; +VITS42.53 EXT
[2018-08-20 08:06] LABS: METANEPHRINE PLASMA 42 pg/mL (0-62); NORMETANEPHRINE PLASMA 241 pg/mL (0-145)
== END ==
LOC: M LRY 09:11
PROVIDERS: ATTEND Internal Medicine Cardiovascular Disease
DX: R23.2 Flushing (principal)

== ENCOUNTER → 2018-08-17 | Outpatient (REF) | payer MEDICARE | LOC: M SFHCLERA 11:57 | PROVIDERS: ATTEND Physician Assistant | DX: R30.0 Dysuria (principal) | CPT/HCPCS: 81002; 87088; 87186; G0463 ==

== ENCOUNTER → 2018-10-20 | Outpatient (REF) | payer MEDICARE | LOC: M SFHCLERA 11:18 | PROVIDERS: ATTEND Physician Assistant | DX: I25.10 Atherosclerotic heart disease of native coronary artery without angina pectoris (principal); E78.2 Mixed hyperlipidemia | CPT/HCPCS: 81002; G0463 ==

== ENCOUNTER → 2018-10-20 | Outpatient (CLI) | payer MEDICARE ==
[2018-10-20 11:36] LABS: ALBUMIN 3.9 GM/DL (3.2-5.2); ALT/SGPT 29 U/L (12-78); BILIRUBIN,DIRECT < 0.1 MG/DL (0.0-0.2); BILIRUBIN,TOTAL 0.3 MG/DL (0.2-1.0); CHOLESTEROL LEVEL 293 MG/DL (<200); CHOLESTEROL RISK RATIO 7.146 (<5); HDL CHOLESTEROL 41 MG/DL (>40); LDL CHOLESTEROL 192 MG/DL (<100); NON-HDL-C 252 MG/DL; TOTAL PROTEIN 7.3 GM/DL (6.4-8.2); TRIGLYCERIDES LEVEL 301 MG/DL (<150)
== END ==
LOC: M LRY 08:48
PROVIDERS: ATTEND Physician Assistant
DX: I25.10 Atherosclerotic heart disease of native coronary artery without angina pectoris (principal); E78.2 Mixed hyperlipidemia; R39.15 Urgency of urination

== ENCOUNTER → 2018-11-11 | Outpatient (REF) | payer MEDICARE ==
[~2018-11-11] MED LIST changes: -ARTI99.0 OU; +ARTIDRO2 OU
[2018-11-11 13:35] LABS: APPEARANCE, URINE HAZY (CLEAR); BACTERIA, URINE AUTO NEGATIVE (NEGATIVE); BILIRUBIN, URINE AUTO NEGATIVE (NEGATIVE); BLOOD, URINE BLOOD NEGATIVE (NEGATIVE); COLOR, URINE YELLOW (YELLOW); GLUCOSE, URINE (UA) AUTO NEGATIVE (NEGATIVE); KETONE, URINE AUTO NEGATIVE (NEGATIVE); LEUKOCYTE ESTERASE, URINE AUTO 2+ (NEGATIVE); NITRITE, URINE AUTO NEGATIVE (NEGATIVE); PROTEIN, URINE AUTO NEGATIVE (NEGATIVE); RBC, URINE AUTO 1 /HPF (0-3); SPECIFIC GRAVITY URINE AUTO 1.005 (1.002-1.035); SQUAMOUS EPITHELIAL CELL UR AU 1 /HPF (0-6); UROBILINOGEN, URINE AUTO 0.2 mg/dL (0.0-2.0); WBC, URINE AUTO 2 /HPF (0-3)
== END ==
LOC: M SMT 13:10
PROVIDERS: ATTEND Urology
DX: N39.0 Urinary tract infection, site not specified (principal)
CPT/HCPCS: 81001; G0463

== ENCOUNTER → 2019-02-22 | Outpatient (CLI) | payer MEDICARE ==
--- NOTE | 2019-02-22 10:21 | REP ---
RENAL ULTRASOUND WITH DUPLEX DOPPLER RENAL ARTERY EVALUATION: Real-time sonographic evaluation of the kidneys performed. Kidneys are mildly atrophic. Left kidney demonstrates somewhat increased echotexture diffusely. Right kidney measures 8.8 x 4.0 x 4.1 cm and left kidney 8.4 x 3.1 x 4.1 cm. There is no hydronephrosis on the right. There appears to be a very mild left hydronephrosis. There is a 5 mm cyst in the lower pole of the left kidney. Ureteral jets are seen in the urinary bladder with Doppler color evaluation. Real-time sonographic evaluation and duplex Doppler interrogation of the renal arteries is performed bilaterally. Peak systolic velocity of the abdominal aorta at the level of the renal arteries is 4.1 cm/sec. Peak systolic velocity of the main right renal artery is 109.4 cm/sec, renal to aortic ratio 1.1. Resistive indices are measured in the upper, middle, and lower thirds of the right kidney and range between 0.75 and 0.78. Acceleration times range between 0.04 and 0.07. Peak systolic velocity of the main left renal artery is 109.4 cm/sec. Renal to aortic ratio 1.1. Resistive indices of left kidney range between 0.74 and 0.85. Acceleration times range between 0.04 and 0.05. IMPRESSION: Mild bilateral renal atrophy with increased echotexture of the left kidney suggesting medical renal disease. There appears to be very mild left hydronephrosis and there is a 5 mm cyst in the lower pole of the left kidney. There is no compelling duplex Doppler sonographic evidence of significant renal artery stenosis bilaterally. Electronically Signed by Max Cardenas MD 02/23/2019 10:29 A
== END ==
LOC: M RAD 08:26
PROVIDERS: ATTEND Nurse Practitioner Family
DX: E78.2 Mixed hyperlipidemia (principal); I10 Essential (primary) hypertension

== ENCOUNTER → 2019-06-07 | Outpatient (REF) | payer MEDICARE ==
[~2019-06-07] MED LIST changes: -ARTIDRO2 OU; +POLYOPD OU
[2019-06-07 18:26] LABS: PERCENT SATURATION 27.3 % (13.2-45.0)
== END ==
LOC: M LAB REF 17:03
PROVIDERS: ATTEND Nurse Practitioner Family
DX: D50.9 Iron deficiency anemia, unspecified (principal)

== ENCOUNTER → 2020-12-03 | Outpatient (REF) | payer MEDICARE ==
[~2020-12-03] MED LIST changes: -ASPI81TA85 PO; +ASPI81TA86 PO; +FAMO10TA50 PO; -FAMO1TAB25 PO; +HYDR26CR EXT; -PREP1CRE EXT
== END ==
LOC: M LAB REF 16:52
PROVIDERS: ATTEND Internal Medicine Nephrology
DX: N18.4 Chronic kidney disease, stage 4 (severe) (principal)

== ENCOUNTER → 2021-01-17 | Outpatient (CLI) | payer MEDICARE | LOC: M LABSMTC 10:39 | PROVIDERS: ATTEND Pediatrics | DX: Z11.52 Encounter for screening for COVID-19 (principal) | CPT/HCPCS: C9803; U0003 ==

== ENCOUNTER → 2021-10-14 | Outpatient (CLI) | payer MEDICARE | LOC: M RAD 10:57 | PROVIDERS: ATTEND Nurse Practitioner Family | DX: I65.23 Occlusion and stenosis of bilateral carotid arteries (principal) ==

== ENCOUNTER → 2022-10-15 | Outpatient (REF) | payer MEDICARE ==
[~2022-10-15] MED LIST changes: +ARTIDRO4 OU; -BENI40TA26 PO; +OLME40TA56 PO; -POLYOPD OU
[2022-10-15 18:52] LABS: FERRITIN 92.8 NG/ML (7.3-270.7)
== END ==
LOC: M LAB REF 17:21
PROVIDERS: ATTEND Internal Medicine Nephrology
DX: D50.9 Iron deficiency anemia, unspecified (principal)

== ENCOUNTER → 2023-03-19 | Outpatient (REF) | payer MEDICARE ==
[2023-03-19 16:37] LABS: BASO % 0.7 % (0.0-1.0); EOS # 0.3 10^3/uL (0.0-0.5); EOS % 5.3 % (0.0-3.0); HEMATOCRIT 33.8 % (36.0-47.0); HEMOGLOBIN 10.6 g/dl (12.0-15.5); LYMPH # 1.1 10^3/uL (1.5-5.0); MEAN CORPUSCULAR HEMOGLOBIN 29.9 pg (27.0-33.0); MEAN CORPUSCULAR HGB CONC 31.4 g/dl (32.0-36.5); MEAN CORPUSCULAR VOLUME 95.5 fl (80.0-96.0); MONO # 0.7 10^3/uL (0.0-0.8); NEUTROPHILS # 3.8 10^3/uL (1.5-8.5); NEUTROPHILS % 63.3 % (36.0-66.0); PLATELET COUNT, AUTOMATED 356 10^3/uL (150-450); RED BLOOD COUNT 3.54 10^6/uL (4.00-5.40)
[2023-03-19 16:38] LABS: APPEARANCE, URINE CLEAR (CLEAR); BACTERIA, URINE AUTO NEGATIVE (NEGATIVE); BILIRUBIN, URINE AUTO NEGATIVE (NEGATIVE); BLOOD, URINE BLOOD NEGATIVE (NEGATIVE); COLOR, URINE YELLOW (YELLOW); GLUCOSE, URINE (UA) AUTO NEGATIVE (NEGATIVE); KETONE, URINE AUTO NEGATIVE (NEGATIVE); LEUKOCYTE ESTERASE, URINE AUTO NEGATIVE (NEGATIVE); NITRITE, URINE AUTO NEGATIVE (NEGATIVE); PROTEIN, URINE AUTO NEGATIVE (NEGATIVE); RBC, URINE AUTO 4 /HPF (0-3); SPECIFIC GRAVITY URINE AUTO 1.015 (1.002-1.035); SQUAMOUS EPITHELIAL CELL UR AU 0 /HPF (0-6); UROBILINOGEN, URINE AUTO 0.2 mg/dL (0.0-2.0); WBC, URINE AUTO 0 /HPF (0-3)
[2023-03-19 16:43] LABS: ERYTHROCYTE SEDIMENTATION RATE 47 mm/hr (0-30)
[2023-03-19 17:00] LABS: TOTAL PROTEIN,RANDOM URINE 16.7 MG/DL (0.0-14.0)
[2023-03-19 17:01] LABS: C REACTIVE PROTEIN QUANTITATIV 3.6 MG/DL (<1.0)
[2023-03-19 17:02] LABS: COMPLEMENT C3 169.8 MG/DL (90.0-170.0); COMPLEMENT C4 43.3 MG/DL (12-36); IMMUNOGLOBULIN A 123.3 MG/DL (40-350)
[2023-03-19 17:03] LABS: IMMUNOGLOBULIN M 72.5 MG/DL (50-300)
[2023-03-19 17:04] LABS: CREATININE,RANDOM URINE 55.2 MG/DL
[2023-03-24 10:59] LABS: DRVV SCREEN 36.5 SECONDS
[2023-03-24 11:03] LABS: PTT LUPUS TYPE ANTICOAG SCREEN 0.92 (0-1.20)
[2023-03-24 16:08] LABS: COMPLEMENT TOTAL (CH50) > 60 U/mL (>41)
== END ==
LOC: M SFHCRHEU 15:21
PROVIDERS: ATTEND Internal Medicine
DX: R76.8 Other specified abnormal immunological findings in serum (principal); D72.810 Lymphocytopenia; M25.40 Effusion, unspecified joint; M25.50 Pain in unspecified joint; R20.2 Paresthesia of skin; Z79.01 Long term (current) use of anticoagulants; Z79.899 Other long term (current) drug therapy; Z79.890 Hormone replacement therapy; Z79.82 Long term (current) use of aspirin; Z88.1 Allergy status to other antibiotic agents; Z88.2 Allergy status to sulfonamides; Z91.048 Other nonmedicinal substance allergy status

== ENCOUNTER → 2023-08-04 | Outpatient (REF) | payer MEDICARE ==
[~2023-08-04] MED LIST changes: +CRAN500C11 PO; -CVS500CA5 PO; +LABE100T6; +MM S100C PO; +OCUV1CAP4 PO; +OLME40TA; +THERTAB19 PO
[2023-08-04 16:37] LABS: BASO % 0.6 % (0.0-1.0); EOS # 0.2 10^3/uL (0.0-0.5); EOS % 2.5 % (0.0-3.0); HEMATOCRIT 32.3 % (36.0-47.0); LYMPH # 1.1 10^3/uL (1.5-5.0); LYMPH % 15.3 % (24.0-44.0); MEAN CORPUSCULAR HEMOGLOBIN 29.2 pg (27.0-33.0); MEAN CORPUSCULAR VOLUME 94.4 fl (80.0-96.0); MONO % 14.3 % (2.0-8.0); NEUTROPHILS # 4.7 10^3/uL (1.5-8.5); NEUTROPHILS % 66.9 % (36.0-66.0); PLATELET COUNT, AUTOMATED 465 10^3/uL (150-450); RED BLOOD COUNT 3.42 10^6/uL (4.00-5.40); WHITE BLOOD COUNT 7.1 10^3/uL (4.0-10.0)
[2023-08-04 16:46] LABS: COMPLEMENT C3 169.6 MG/DL (90.0-170.0); COMPLEMENT C4 40.3 MG/DL (12-36)
[2023-08-04 16:48] LABS: ALBUMIN 3.4 G/DL (3.2-5.2); ALKALINE PHOSPHATASE 74 U/L (46-116); ALT/SGPT 10 U/L (7.0-40); AST/SGOT 13 U/L (<34); BILIRUBIN,DIRECT < 0.1 MG/DL (<0.4); BILIRUBIN,TOTAL 0.2 MG/DL (0.3-1.2); BLOOD UREA NITROGEN 38 MG/DL (9-23); CALCIUM LEVEL 10.2 MG/DL (8.3-10.6); CARBON DIOXIDE LEVEL 24 MMOL/L (20-31); CHLORIDE LEVEL 102 MMOL/L (98-107); CREATININE FOR GFR 1.61 MG/DL (0.55-1.30); GLOMERULAR FILTRATION RATE 32.4 (>32); GLUCOSE, FASTING 87 MG/DL (74-106); POTASSIUM SERUM 5.2 MMOL/L (3.5-5.1); SODIUM LEVEL 136 MMOL/L (136-145); TOTAL PROTEIN 7.3 G/DL (5.7-8.2)
[2023-08-04 16:55] LABS: ERYTHROCYTE SEDIMENTATION RATE 66 mm/hr (0-30)
[2023-08-07 15:11] LABS: COMPLEMENT TOTAL (CH50) > 60 U/mL (>41)
[2023-08-11 00:06] LABS: ANTI DS-DNA AB Negative (Negative)
== END ==
LOC: M SFHCRHEU 13:33
PROVIDERS: ATTEND Internal Medicine
DX: M35.9 Systemic involvement of connective tissue, unspecified (principal)

== ENCOUNTER → 2023-08-24 | Outpatient (REF) | payer MEDICARE ==
[2023-08-24 18:01] LABS: PERCENT SATURATION 10.5 % (13.2-45.0)
[2023-08-24 18:02] LABS: FERRITIN 82.5 NG/ML (7.3-270.7)
== END ==
LOC: M LAB REF 17:03
PROVIDERS: ATTEND Internal Medicine Nephrology
DX: D50.9 Iron deficiency anemia, unspecified (principal)

== ENCOUNTER → 2023-10-12 | Outpatient (CLI) | payer MEDICARE ==
[~2023-10-12] MED LIST changes: +BUSP5TA; +METO1TAB7; +[UNRECOGNIZED DRUG - CODE] PO
== END ==
LOC: M RAD 11:44
PROVIDERS: ATTEND Nurse Practitioner Acute Care
DX: I77.9 Disorder of arteries and arterioles, unspecified (principal); I65.23 Occlusion and stenosis of bilateral carotid arteries

== ENCOUNTER 2024-06-04 16:47 | Observation (INO) | payer MEDICARE ==
[~2024-06-04] VITALS: Ht 142.2 cm; Wt 64.0 kg
[~2024-06-04 16:47] MED LIST changes: -BUSP5TA; +BUSP5TA PO; -CRAN500C11 PO; +CVS500CA5 PO; -LABE100T6; +LABE100T6 PO; -METO1TAB7; +METO1TAB7 PO; -OLME40TA; +OLME40TA PO
[2024-06-04] MEDS: LABETALOL 100MG/20ML VIAL IV STA (17:49)
[2024-06-04 17:50] LABS: CK-MB VALUE MASS 1.2 NG/ML (<3.6)
[2024-06-04 17:55] VITALS: BP 201/88
[2024-06-04 17:55] LABS: ALBUMIN 3.4 G/DL (3.2-5.2); ALKALINE PHOSPHATASE 45 U/L (35-104); ALT/SGPT 18 U/L (7.0-40); AST/SGOT 21 U/L (<34); BILIRUBIN,DIRECT < 0.1 MG/DL (<0.4); BILIRUBIN,TOTAL 0.3 MG/DL (0.3-1.2); BLOOD UREA NITROGEN 35 MG/DL (9-23); CARBON DIOXIDE LEVEL 22 MMOL/L (20-31); CHLORIDE LEVEL 109 MMOL/L (98-107); CPK CREATINE PHOSPHOKINASE 95 U/L (34-145); CREATININE FOR GFR 1.59 MG/DL (0.55-1.30); GLOMERULAR FILTRATION RATE 32.8 (>32); GLUCOSE, FASTING 95 MG/DL (74-106); MB/CK RELATIVE INDEX 1.26 (< OR =4); POTASSIUM SERUM 4.6 MMOL/L (3.5-5.1); SODIUM LEVEL 142 MMOL/L (136-145); TOTAL PROTEIN 6.6 G/DL (5.7-8.2)
[2024-06-04] MEDS: hydrALAZINE 20MG/ML 1ML VIAL IV STA (17:55)
[2024-06-04 17:56] LABS: BASO % 0.7 % (0.0-1.0); EOS # 0.2 10^3/uL (0.0-0.5); EOS % 3.3 % (0.0-3.0); HEMATOCRIT 36.7 % (36.0-47.0); HEMOGLOBIN 11.9 g/dl (12.0-15.5); LYMPH % 17.4 % (24.0-44.0); MEAN CORPUSCULAR HEMOGLOBIN 31.4 pg (27.0-33.0); MEAN CORPUSCULAR HGB CONC 32.4 g/dl (32.0-36.5); MEAN CORPUSCULAR VOLUME 96.8 fl (80.0-96.0); MONO # 0.6 10^3/uL (0.0-0.8); MONO % 10.8 % (2.0-8.0); NEUTROPHILS # 3.7 10^3/uL (1.5-8.5); NEUTROPHILS % 67.3 % (36.0-66.0); PLATELET COUNT, AUTOMATED 280 10^3/uL (150-450); RED BLOOD COUNT 3.79 10^6/uL (4.00-5.40); WHITE BLOOD COUNT 5.5 10^3/uL (4.0-10.0)
[2024-06-04 19:07] LABS: MB/CK RELATIVE INDEX 0.92 (< OR =4)
[2024-06-04 21:21] LABS: CK-MB VALUE MASS 1.5 NG/ML (<3.6)
[2024-06-04 21:23] LABS: MB/CK RELATIVE INDEX 1.27 (< OR =4)
[2024-06-04] MEDS ORDERED: hydrALAZINE 20MG/ML 1ML VIAL IV PRN (23:30)
[2024-06-04] MEDS: ACETAMINOPHEN *IV* 500 MG in IV 1 EA IV ONE (23:38)
[2024-06-05] MEDS ORDERED: METO1TAB32 PO (00:38)
[2024-06-05] MEDS ORDERED: IRON15CH PO (00:38)
[2024-06-05] MEDS ORDERED: OMEG12003 PO (00:38)
[2024-06-05] MEDS ORDERED: HYDR-161 PO (00:38)
[2024-06-05] MEDS ORDERED: hydrALAZINE 20MG/ML 1ML VIAL IV PRN (00:40)
[2024-06-05] MEDS ORDERED: HOME MED LIST COMPLETE! XX SCH (00:40)
[2024-06-05] MEDS ORDERED: LEVOTHYROXINE 75MCG TABLET (0.075MG) PO SCH (06:00)
[2024-06-05] MEDS: HEPARIN SOD (PORCINE) 5000UNITS/ML 1ML VIAL/SYRINGE SC SCH (06:37)
[2024-06-05] MEDS ORDERED: LABE100T6 PO (07:08)
[2024-06-05 07:14] LABS: BASO % 0.7 % (0.0-1.0); EOS # 0.2 10^3/uL (0.0-0.5); EOS % 3.5 % (0.0-3.0); HEMATOCRIT 36.1 % (36.0-47.0); HEMOGLOBIN 11.7 g/dl (12.0-15.5); LYMPH # 1.4 10^3/uL (1.5-5.0); LYMPH % 23.2 % (24.0-44.0); MEAN CORPUSCULAR HEMOGLOBIN 31.4 pg (27.0-33.0); MEAN CORPUSCULAR HGB CONC 32.4 g/dl (32.0-36.5); MEAN CORPUSCULAR VOLUME 96.8 fl (80.0-96.0); MONO # 0.8 10^3/uL (0.0-0.8); MONO % 14.1 % (2.0-8.0); NEUTROPHILS # 3.5 10^3/uL (1.5-8.5); NEUTROPHILS % 58.2 % (36.0-66.0); PLATELET COUNT, AUTOMATED 261 10^3/uL (150-450); RED BLOOD COUNT 3.73 10^6/uL (4.00-5.40)
[2024-06-05 07:37] LABS: ALBUMIN 3.5 G/DL (3.2-5.2); BILIRUBIN,TOTAL 0.6 MG/DL (0.3-1.2); CALCIUM LEVEL 9.5 MG/DL (8.3-10.6); CREATININE FOR GFR 1.79 MG/DL (0.55-1.30); GLOMERULAR FILTRATION RATE 28.6 (>32); MAGNESIUM LEVEL 2.1 MG/DL (1.8-2.4); POTASSIUM SERUM 4.7 MMOL/L (3.5-5.1)
[2024-06-05] MEDS ORDERED: HYDROCORTISONE 1% CREAM 30GM EXT PRN (08:10)
[2024-06-05] MEDS ORDERED: FAMOTIDINE 20 MG TAB PO PRN (08:10)
[2024-06-05] MEDS ORDERED: CALCIUM CARBONATE 500 MG CHEW U/D PO PRN (08:10)
[2024-06-05] MEDS ORDERED: busPIRone 5 MG TAB PO PRN (08:10)
[2024-06-05] MEDS ORDERED: ACETAMINOPHEN 500 MG TAB PO PRN (08:10)
[2024-06-05] MEDS ORDERED: ASPIRIN 81MG ENTERIC TABLET PO SCH (09:00)
[2024-06-05] MEDS ORDERED: ASCORBIC ACID 500 MG TAB PO SCH (09:00)
[2024-06-05] MEDS ORDERED: FAMOTIDINE 20 MG TAB PO SCH (09:00)
[2024-06-05] MEDS ORDERED: METOPROLOL SUCC *XL* 25MG TAB (TopROL *XL*) PO SCH (09:00)
[2024-06-05] MEDS ORDERED: DOCUSATE SODIUM 100MG CAPSULE PO SCH (09:00)
[2024-06-05] MEDS ORDERED: **hydrALAZINE** 10 MG TAB PO SCH (09:00)
[2024-06-05] MEDS ORDERED: METOPROLOL SUCC (TopROL XL) 50MG **XL** TAB PO SCH (09:00)
[2024-06-05] MEDS ORDERED: POLYVINYL ALCOHOL OPHTH SOLN 15ML (LIQUITEARS) OU SCH (09:00)
[2024-06-05] MEDS ORDERED: LABETALOL 100MG TAB PO SCH (09:00)
[2024-06-05 09:19] VITALS: BP 158/69; TEMP 96.9; O2SAT 96
[2024-06-05] MEDS ORDERED: OLMESARTAN MEDOXOMIL 20 MG TAB (BENICAR) PO SCH (21:00)
== END 2024-06-05 09:19 | disposition home or self-care (01) ==
LOC: EDBD 16:47 → M ED 16:47 → M ED INP 16:48
PROVIDERS: ADMIT Family Medicine; ATTEND Family Medicine
DX: I16.0 Hypertensive urgency (principal); R07.1 Chest pain on breathing; I25.10 Atherosclerotic heart disease of native coronary artery without angina pectoris; I12.9 Hypertensive chronic kidney disease with stage 1 through stage 4 chronic kidney disease, or unspecified chronic kidney disease; Z95.5 Presence of coronary angioplasty implant and graft; I25.2 Old myocardial infarction; I45.10 Unspecified right bundle-branch block; E78.00 Pure hypercholesterolemia, unspecified; F41.9 Anxiety disorder, unspecified; K21.9 Gastro-esophageal reflux disease without esophagitis; K59.00 Constipation, unspecified; K64.9 Unspecified hemorrhoids; K57.90 Diverticulosis of intestine, part unspecified, without perforation or abscess without bleeding; N18.9 Chronic kidney disease, unspecified; M19.90 Unspecified osteoarthritis, unspecified site; D64.9 Anemia, unspecified; F40.240 Claustrophobia; Z90.89 Acquired absence of other organs; Z90.49 Acquired absence of other specified parts of digestive tract; Z90.79 Acquired absence of other genital organ(s); Z82.41 Family history of sudden cardiac death; Z80.1 Family history of malignant neoplasm of trachea, bronchus and lung; Z81.2 Family history of tobacco abuse and dependence; Z88.2 Allergy status to sulfonamides; Z88.8 Allergy status to other drugs, medicaments and biological substances; Z79.899 Other long term (current) drug therapy; Z79.82 Long term (current) use of aspirin; Z79.890 Hormone replacement therapy; Z66 Do not resuscitate
CPT/HCPCS: 36415; 70450; 71045; 80047; 80048; 80053; 80076; 82550; 82553; 83735; 83880; 84484; 85025; 93005; 93041; 94760; 96365; 96372; 96375; 99285; G0378; J0131; J0360; J1920

== ENCOUNTER 2025-03-08 20:20 | Observation (INO) | payer MEDICARE ==
[~2025-03-08] VITALS: Ht 144.8 cm; Wt 56.9 kg
[~2025-03-08 20:20] MED LIST changes: +HYDR-161 PO; +IRON15CH PO; -LABE100T6 PO; +LABE100T91 PO; +METO1TAB32 PO; +OMEG12003 PO; -VITA100T14 PO; +VITA100T69 PO
[2025-03-08 20:59] LABS: BASO # 0.0 10^3/uL (0.0-0.2); BASO % 0.5 % (0.0-1.0); EOS # 0.2 10^3/uL (0.0-0.5); EOS % 3.3 % (0.0-3.0); LYMPH # 1.2 10^3/uL (1.5-5.0); LYMPH % 20.5 % (24.0-44.0); MONO # 0.7 10^3/uL (0.0-0.8); MONO % 11.5 % (2.0-8.0); NEUTROPHILS # 3.8 10^3/uL (1.5-8.5); NEUTROPHILS % 63.9 % (36.0-66.0); PLATELET COUNT, AUTOMATED 241 10^3/uL (150-450)
[2025-03-08] MEDS: hydrALAZINE 20 MG/ML 1 ML VIAL IV PRN (21:10)
[2025-03-08 21:28] LABS: CK-MB VALUE MASS 1.3 NG/ML (<3.6)
[2025-03-08 21:30] VITALS: BP 165/71; O2SAT 96
[2025-03-08 21:40] LABS: INR 1.01
[2025-03-08 21:41] LABS: CPK CREATINE PHOSPHOKINASE 89.0 U/L (34-145); MB/CK RELATIVE INDEX 1.46 (< OR =4)
[2025-03-08 21:45] VITALS: BP 162/72; O2SAT 96
[2025-03-08 22:00] VITALS: BP 168/60; O2SAT 97
[2025-03-08 22:32] LABS: CK-MB VALUE MASS 1.2 NG/ML (<3.6)
[2025-03-08 22:33] LABS: CALCIUM LEVEL 8.8 MG/DL (8.3-10.6); CARBON DIOXIDE LEVEL 23.0 MMOL/L (20-31); CHLORIDE LEVEL 105.0 MMOL/L (98-107); CPK CREATINE PHOSPHOKINASE 78.0 U/L (34-145); CREATININE FOR GFR 1.57 MG/DL (0.55-1.30); GLOMERULAR FILTRATION RATE 31.7 (>32); MB/CK RELATIVE INDEX 1.53 (< OR =4); POTASSIUM SERUM 4.6 MMOL/L (3.5-5.1); SODIUM LEVEL 138.0 MMOL/L (136-145)
[2025-03-08 22:45] LABS: KETONE, URINE AUTO RFX NEGATIVE (NEGATIVE); LEUKOCYTE ESTERASE UR AUTO RFX 2+ (NEGATIVE); MUCUS, URINE RFX SMALL (NEGATIVE); NITRITE, URINE AUTO RFX NEGATIVE (NEGATIVE); RBC, URINE AUTO RFX 2 /HPF (0-3); SQUAM EPITHELIAL CELL UR AURFX 3 /HPF (0-6); WBC, URINE AUTO RFX 7 /HPF (0-3)
[2025-03-08] MEDS ORDERED: ISOVUE-370 76% 100 ML VIAL As Ordered ONE (22:47)
[2025-03-09] MEDS: hydrALAZINE 20 MG/ML 1 ML VIAL IV ONE (00:58)
[2025-03-09 03:33] LABS: MAGNESIUM LEVEL 2.0 MG/DL (1.8-2.4)
[2025-03-09 03:37] LABS: FREE T4 1.17 NG/DL (0.89-1.76)
[2025-03-09 03:46] LABS: BASO # 0.0 10^3/uL (0.0-0.2); BASO % 0.5 % (0.0-1.0); EOS # 0.2 10^3/uL (0.0-0.5); EOS % 2.3 % (0.0-3.0); LYMPH # 0.9 10^3/uL (1.5-5.0); LYMPH % 13.5 % (24.0-44.0); MONO # 0.7 10^3/uL (0.0-0.8); MONO % 11.1 % (2.0-8.0); NEUTROPHILS # 4.7 10^3/uL (1.5-8.5); NEUTROPHILS % 72.3 % (36.0-66.0); PLATELET COUNT, AUTOMATED 227 10^3/uL (150-450)
[2025-03-09 04:09] LABS: INR 1.05
[2025-03-09 04:19] LABS: CALCIUM LEVEL 8.9 MG/DL (8.3-10.6); CARBON DIOXIDE LEVEL 23.0 MMOL/L (20-31); CHLORIDE LEVEL 104.0 MMOL/L (98-107); CREATININE FOR GFR 1.56 MG/DL (0.55-1.30); GLOMERULAR FILTRATION RATE 32.0 (>32); POTASSIUM SERUM 4.5 MMOL/L (3.5-5.1); SODIUM LEVEL 138.0 MMOL/L (136-145)
[2025-03-09] MEDS ORDERED: ACETAMINOPHEN 500 MG TAB As Ordered ONE (06:48)
[2025-03-09] MEDS: ACETAMINOPHEN 500 MG TAB PO PRN (06:51)
[2025-03-09] MEDS ORDERED: LEXA5TAB13 PO (08:54)
[2025-03-09] MEDS ORDERED: LEVO50TA5 PO (09:34)
[2025-03-09] MEDS ORDERED: CLAR10CA3 PO (09:34)
[2025-03-09] MEDS ORDERED: HOME MED LIST COMPLETE! XX SCH ×2 (09:35→16:45)
[2025-03-09] MEDS: HEPARIN SOD 5000 UNITS/ML 1 ML VIAL/SYRINGE SC SCH (12:25)
[2025-03-09] MEDS: PANTOPRAZOLE 40MG VIAL IV SCH (12:25)
[2025-03-09] MEDS ORDERED: HYDROCORTISONE 1% CREAM 30 GM EXT PRN (15:45)
[2025-03-09] MEDS ORDERED: CALCIUM CARBONATE 500 MG CHEW U/D PO PRN (15:45)
[2025-03-09] MEDS ORDERED: PILL CUTTER 1 EACH XX PRN (16:25)
[2025-03-09] MEDS ORDERED: ECOT81TA5 PO (16:32)
[2025-03-09] MEDS ORDERED: VITA500C24 PO (16:32)
[2025-03-09] MEDS ORDERED: CHOL10007 PO (16:34)
[2025-03-09] MEDS ORDERED: FAMO20TA PO (16:34)
[2025-03-09] MEDS ORDERED: LEVO50TA45 PO (16:35)
[2025-03-09] MEDS ORDERED: HYDR50TA46 PO (16:35)
[2025-03-09] MEDS ORDERED: COQ1200C3 PO (16:38)
[2025-03-09] MEDS ORDERED: TOPR25TA PO (16:39)
[2025-03-09] MEDS ORDERED: NITR0.4S14 SL (16:44)
[2025-03-09] MEDS ORDERED: CALC-205 PO (16:45)
[2025-03-09] MEDS: LOSARTAN 50 MG TABLET PO SCH (20:50)
[2025-03-09] MEDS: ESCITALOPRAM OXALATE 5 MG TABLET PO SCH (20:50)
[2025-03-09] MEDS: **hydrALAZINE** 10 MG TAB PO PRN (22:14)
[2025-03-09 22:43] VITALS: BP 188/84; TEMP 98.3; O2SAT 96
[2025-03-09 23:00] VITALS: BP 182/84
[2025-03-09 23:41] VITALS: BP 190/80; TEMP 98; O2SAT 98
[2025-03-10 00:30] VITALS: BP 172/71
[2025-03-10 04:08] VITALS: BP 146/64; TEMP 98.9; O2SAT 95
[2025-03-10] MEDS: LEVOTHYROXINE 50 MCG TABLET (0.05 MG) PO SCH (06:13)
[2025-03-10 06:30] LABS: BASO # 0.0 10^3/uL (0.0-0.2); BASO % 0.5 % (0.0-1.0); EOS # 0.3 10^3/uL (0.0-0.5); EOS % 4.3 % (0.0-3.0); LYMPH # 1.6 10^3/uL (1.5-5.0); LYMPH % 25.5 % (24.0-44.0); MONO # 0.9 10^3/uL (0.0-0.8); MONO % 14.7 % (2.0-8.0); NEUTROPHILS # 3.3 10^3/uL (1.5-8.5); NEUTROPHILS % 54.5 % (36.0-66.0); PLATELET COUNT, AUTOMATED 236 10^3/uL (150-450)
[2025-03-10 06:50] LABS: CALCIUM LEVEL 8.7 MG/DL (8.3-10.6); CARBON DIOXIDE LEVEL 24.0 MMOL/L (20-31); CHLORIDE LEVEL 106.0 MMOL/L (98-107); CREATININE FOR GFR 1.97 MG/DL (0.55-1.30); GLOMERULAR FILTRATION RATE 24.2 (>32); POTASSIUM SERUM 4.6 MMOL/L (3.5-5.1); SODIUM LEVEL 140.0 MMOL/L (136-145)
[2025-03-10] MEDS: LORATADINE 10 MG TAB PO SCH (09:17)
[2025-03-10] MEDS: ASCORBIC ACID 500 MG TAB PO SCH (09:18)
[2025-03-10] MEDS: FAMOTIDINE 20 MG TAB PO SCH (09:18)
[2025-03-10] MEDS: ASPIRIN 81 MG ENTERIC TABLET PO SCH (09:18)
[2025-03-10 09:20] VITALS: BP 127/62
[2025-03-10] MEDS: METOPROLOL SUCC. 25 MG *XL* TAB PO SCH (09:20)
[2025-03-10 12:00] VITALS: BP 171/75; TEMP 99; O2SAT 97
[2025-03-10] MEDS: NYSTATIN 100,000 UNITS/GM TOPICAL PWD 15 GM TOP SCH (12:00)
[2025-03-10 12:02] VITALS: BP 142/72; TEMP 97.2
[2025-03-10] MEDS ORDERED: HYDR-161 PO (13:24)
== END 2025-03-10 14:30 | disposition home or self-care (01) ==
LOC: EDBD 20:20 → M ED 20:20 → M ED INP 20:21 → M MSPAV 03-09 22:20
PROVIDERS: ADMIT Student in an Organized Health Care Education/Training Program; ATTEND Student in an Organized Health Care Education/Training Program
DX: I16.1 Hypertensive emergency (principal); Z66 Do not resuscitate; I67.4 Hypertensive encephalopathy; I25.2 Old myocardial infarction; E78.5 Hyperlipidemia, unspecified; I12.9 Hypertensive chronic kidney disease with stage 1 through stage 4 chronic kidney disease, or unspecified chronic kidney disease; K21.9 Gastro-esophageal reflux disease without esophagitis; N18.9 Chronic kidney disease, unspecified; E03.9 Hypothyroidism, unspecified; F41.9 Anxiety disorder, unspecified; M19.90 Unspecified osteoarthritis, unspecified site; Z90.49 Acquired absence of other specified parts of digestive tract; Z90.79 Acquired absence of other genital organ(s); G89.29 Other chronic pain; Z79.890 Hormone replacement therapy; Z79.82 Long term (current) use of aspirin; Z79.899 Other long term (current) drug therapy; Z88.2 Allergy status to sulfonamides; Z88.8 Allergy status to other drugs, medicaments and biological substances; Z95.5 Presence of coronary angioplasty implant and graft
CPT/HCPCS: 36415; 70450; 70496; 70498; 70551; 71045; 80047; 80048; 81001; 82550; 82553; 83735; 84439; 84443; 84484; 85025; 85610; 85730; 87086; 93005; 93041; 93306; 94760; 96372; 96374; 96375; 96376; 97161; 97530; 99285; G0378; J0360; J2470; Q9967